=== PATIENT | female | born 1980 | race African-American/Black ===

== ENCOUNTER 2018-02-22 05:48 | Inpatient (IN) | payer OTHER ==
[~2018-02-22] VITALS: Ht 170.2 cm; Wt 114.3 kg
[2018-02-22] MEDS ORDERED: SODIUM CHLORIDE 0.9% 1000ML BAG (SEPSIS BOLUS) IV ONE (07:15)
[2018-02-22] MEDS ORDERED: FENTANYL CITRATE/PF 50MCG/ML 2ML VIAL IV ONE ×2 (07:15→11:00)
[2018-02-22] MEDS ORDERED: ACETAMINOPHEN 500MG TABLET PO ONE (07:15)
[2018-02-22 08:02] LABS: HEMATOCRIT. 25.3 % (36.0-48.0); HEMOGLOBIN. 7.3 g/dL (12.0-16.0); MEAN CORPUSCULAR VOLUME 58.8 fL (81.0-99.0); MEAN PLATELET VOLUME 8.9 fl (7.4-10.4); PLATELET 578 x1000/uL (130-400); RED CELL DISTRIBUTION WIDTH 20.5 % (11.6-14.6)
[2018-02-22 08:03] LABS: CHLORIDE 105 mEq/L (98-107)
[2018-02-22 08:04] LABS: INR 1.2; PROTHROMBIN TIME 11.8 sec (9.1-11.1)
[2018-02-22 08:30] LABS: PLATELET ESTIMATE INCREASED
[2018-02-22] MEDS ORDERED: VANCOMYCIN 1 G PREMIX 200 ML IV SCH (08:45)
[2018-02-22 08:58] LABS: HCG SCREEN NEGATIVE
[2018-02-22 09:42] LABS: CLARITY URINE TURBID (CLEAR); COLOR URINE YELLOW (YELLOW); KETONES URINE NEGATIVE (NEGATIVE); LEUKOCYTE ESTERASE URINE NEGATIVE (NEGATIVE); NITRITE URINE NEGATIVE (NEGATIVE); OCCULT BLOOD URINE 3+ (NEGATIVE); PROTEIN URINE 1+ (NEGATIVE); SPECIFIC GRAVITY URINE 1.025 (1.005-1.030); UROBILINOGEN URINE 0.2 E.U./dL (0.2-1.0)
[2018-02-22] MEDS ORDERED: PIPERACILLIN/TAZOBACTAM 3.375GM/50ML PREMIX IV NR (10:15)
[2018-02-22] MEDS ORDERED: CLONIDINE 0.1MG TABLET PO PRN ×2 (11:30→15:15)
[2018-02-22] MEDS ORDERED: LIDOCAINE HCL 1% 20ML VIAL (Pyxis) INJ ONE (12:16)
[2018-02-22 12:21] LABS: TOTAL IRON BINDING CAPACITY 434 ug/dL (250-450)
[2018-02-22] MEDS ORDERED: MORPHINE SULFATE 4 MG/ML CPJ (NOT FOR IM USE) IV ONE (13:00)
[2018-02-22] MEDS ORDERED: DIPHENHYDRAMINE 25MG CAPSULE PO NR (13:25)
[2018-02-22] MEDS ORDERED: ENOXAPARIN 40MG/0.4ML SYR SUBCUT SCH (15:15)
[2018-02-22] MEDS ORDERED: ONDANSETRON HCL 4MG/2ML INJ IV PRN (15:15)
[2018-02-22] MEDS ORDERED: ACETAMINOPHEN 325MG TABLET PO PRN (15:15)
[2018-02-22] MEDS ORDERED: IPRATROPIUM/ALBUTEROL 0.5-3(2.5)MG/3ML NEB INH PRN (15:15)
[2018-02-22] MEDS ORDERED: IPRATROPIUM/ALBUTEROL 0.5-3(2.5)MG/3ML NEB HHN PRN (15:15)
[2018-02-22 16:04] LABS: CREATINE KINASE 727 IU/L (26-192)
[2018-02-22] MEDS ORDERED: IOHEXOL-350 100 ML BOTTLE ONE (17:31)
[2018-02-22 18:00] VITALS: BP 165/105
[2018-02-22] MEDS: LOSARTAN POTASSIUM 25 MG TABLET PO SCH ×2 (18:37→20:53)
[2018-02-22 18:59] LABS: BG BASE EXCESS -0.1 mmol/L (-2.0-2.0); BG CARBOXYHEMOGLOBIN 1.4 % (0.5-1.5); BG DEOXYHEMOGLOBIN 10.3 % (0.0-5.0); BG FRACTION INSPIRED OXYGEN 32; BG HCO3 ACT 24.5 mmol/L (22.0-26.0); BG METHEMOGLOBIN 0.3 % (0.0-1.5); BG OXYGEN SATURATION 89.5 % (92.0-98.5); BG PCO2 39.5 mmHg (35.0-45.0); BG PO2 59.4 mmHg (75.0-100.0); BG SAMPLE SITE LEFT RADIAL; BG TOTAL HEMOGLOBIN 7.4 g/dL (12.0-18.0); BG VENT MODE NASAL CANNULA
[2018-02-22 20:00] VITALS: BP_SYST 158; BP_SYST 159; BP_DIAS 72; BP_DIAS 78
[2018-02-22] MEDS: CEFTRIAXONE 2 G in DEXTROSE 5% WATER 50 ML IV SCH (20:34)
[2018-02-22] MEDS: AZITHROMYCIN 500 MG TABLET PO SCH (20:52)
[2018-02-22] MEDS: ENOXAPARIN 30MG/0.3ML SYR SUBCUT SCH (20:54)
[2018-02-22] MEDS: VANCOMYCIN 1250MG in DEXTROSE 5% WATER 250ML IV SCH (21:38)
[2018-02-22 22:00] VITALS: BP 153/78
[2018-02-22] MEDS: MORPHINE SULFATE 4 MG/ML CPJ (NOT FOR IM USE) IV PRN (22:00)
[2018-02-22] MEDS: CLINDAMYCIN 600 MG in DEXTROSE 5% WATER 50 ML IV SCH (22:59)
[2018-02-23] VITALS (12 sets, daily range): BP systolic 126–189; BP diastolic 60–118
[2018-02-23] MEDS: CLONIDINE 0.1MG TABLET PO PRN ×2 (01:22→09:30)
[2018-02-23] MEDS: MORPHINE SULFATE 4 MG/ML CPJ (NOT FOR IM USE) IV PRN ×5 (01:50→22:16)
[2018-02-23] MEDS: CLINDAMYCIN 600 MG in DEXTROSE 5% WATER 50 ML IV SCH ×3 (05:43→23:45)
[2018-02-23] MEDS: LOSARTAN POTASSIUM 25 MG TABLET PO SCH (09:28)
[2018-02-23] MEDS: ENOXAPARIN 30MG/0.3ML SYR SUBCUT SCH ×2 (09:29→21:30)
[2018-02-23] MEDS: VANCOMYCIN 1250MG in DEXTROSE 5% WATER 250ML IV SCH ×2 (09:30→22:22)
[2018-02-23] MEDS ORDERED: HYDRALAZINE 20MG/ML VIAL IV PRN (11:45)
[2018-02-23] MEDS ORDERED: AMLODIPINE 2.5MG TABLET PO SCH (11:45)
[2018-02-23 13:07] LABS: BG BASE EXCESS 1.8 mmol/L (-2.0-2.0); BG CARBOXYHEMOGLOBIN 1.3 % (0.5-1.5); BG DEOXYHEMOGLOBIN 2.5 % (0.0-5.0); BG FRACTION INSPIRED OXYGEN 32; BG HCO3 ACT 26.4 mmol/L (22.0-26.0); BG METHEMOGLOBIN 0.3 % (0.0-1.5); BG OXYGEN SATURATION 97.5 % (92.0-98.5); BG OXYHEMOGLOBIN 95.9 % (94.0-97.0); BG PCO2 40.9 mmHg (35.0-45.0); BG PH 7.427 (7.350-7.450); BG SAMPLE SITE LEFT RADIAL; BG TOTAL HEMOGLOBIN 7.2 g/dL (12.0-18.0); BG VENT MODE NASAL CANNULA
[2018-02-23] MEDS: IRON SUCROSE COMPLEX 100 MG/5 ML ML IV SCH (13:43)
[2018-02-23] MEDS: SODIUM CHLORIDE 0.45% 1,000 ML IV SCH (13:59)
[2018-02-23 18:15] LABS: HEMATOCRIT 22.8 % (36.0-48.0); MEAN CORPUSCULAR VOLUME 59.6 fL (81.0-99.0); PLATELET 491 x1000/uL (130-400); RED BLOOD CELL COUNT 3.82 mill/uL (4.2-5.4); RED CELL DISTRIBUTION WIDTH 21.1 % (11.6-14.6)
[2018-02-23 18:34] LABS: HEMOGLOBIN 6.5 g/dL (12.0-16.0)
[2018-02-23 18:53] LABS: CHLORIDE 105 mEq/L (98-107)
[2018-02-23 19:05] LABS: LDL CHOLESTEROL 69 mg/dL (5-100)
[2018-02-23 19:07] LABS: CREATINE KINASE 354 IU/L (26-192); CREATINE KINASE MB FRACTION 1.1 ng/mL (0.5-3.6); HDL CHOLESTEROL 48 mg/dL (40-59); T4 FREE 0.84 ng/dL (0.76-1.46)
[2018-02-23] MEDS ORDERED: POTASSIUM CHLORIDE 20MEQ TABLET SR PO NR (20:00)
[2018-02-23] MEDS: AZITHROMYCIN 500 MG TABLET PO SCH (20:00)
[2018-02-23] MEDS: CEFTRIAXONE 2 G in DEXTROSE 5% WATER 50 ML IV SCH (21:04)
[2018-02-23] MEDS: LOSARTAN POTASSIUM 50 MG TABLET PO SCH (21:27)
[2018-02-23] MEDS: AMLODIPINE 5MG TABLET PO SCH (21:28)
[2018-02-24] VITALS (8 sets, daily range): BP systolic 141–171; BP diastolic 78–108
[2018-02-24] MEDS: SODIUM CHLORIDE 0.45% 1,000 ML IV SCH ×2 (01:14→13:02)
[2018-02-24] MEDS: MORPHINE SULFATE 4 MG/ML CPJ (NOT FOR IM USE) IV PRN ×2 (01:50→05:48)
[2018-02-24] MEDS: CLINDAMYCIN 600 MG in DEXTROSE 5% WATER 50 ML IV SCH ×3 (05:59→22:00)
[2018-02-24] MEDS: ENOXAPARIN 30MG/0.3ML SYR SUBCUT SCH (09:00)
[2018-02-24] MEDS: AMLODIPINE 5MG TABLET PO SCH ×2 (09:27→20:45)
[2018-02-24] MEDS: VANCOMYCIN 1250MG in DEXTROSE 5% WATER 250ML IV SCH ×2 (09:27→21:12)
[2018-02-24] MEDS: LOSARTAN POTASSIUM 50 MG TABLET PO SCH ×2 (09:27→20:44)
[2018-02-24 10:39] LABS: BASOPHILS % 0.8 % (0.0-2.0); EOSINOPHILS % 1.2 % (0.0-5.0); HEMATOCRIT. 24.7 % (36.0-48.0); LYMPHOCYTES % 14.2 % (20.0-50.0); MEAN CORPUSCULAR VOLUME 60.1 fL (81.0-99.0); MEAN PLATELET VOLUME 8.6 fl (7.4-10.4); MONOCYTES % 7.9 % (2.0-8.0); NEUTROPHILS % 75.9 % (40.0-76.0); PLATELET 504 x1000/uL (130-400); RED CELL DISTRIBUTION WIDTH 20.8 % (11.6-14.6)
[2018-02-24 11:27] LABS: BG BASE EXCESS 2.5 mmol/L (-2.0-2.0); BG CARBOXYHEMOGLOBIN 1.6 % (0.5-1.5); BG DEOXYHEMOGLOBIN 3.1 % (0.0-5.0); BG FRACTION INSPIRED OXYGEN 28; BG HCO3 ACT 27.7 mmol/L (22.0-26.0); BG METHEMOGLOBIN 0.3 % (0.0-1.5); BG OXYGEN SATURATION 96.8 % (92.0-98.5); BG PCO2 46.3 mmHg (35.0-45.0); BG PH 7.394 (7.350-7.450); BG PO2 90.2 mmHg (75.0-100.0); BG SAMPLE SITE LEFT RADIAL; BG TOTAL HEMOGLOBIN 7.5 g/dL (12.0-18.0); BG VENT MODE NASAL CANNULA
[2018-02-24 11:52] LABS: CHLORIDE 107 mEq/L (98-107)
[2018-02-24 12:03] LABS: CREATINE KINASE 206 IU/L (26-192)
[2018-02-24 12:04] LABS: CREATINE KINASE MB FRACTION < 1.0 ng/mL (0.5-3.6)
[2018-02-24] MEDS: IRON SUCROSE COMPLEX 100 MG/5 ML ML IV SCH (13:02)
[2018-02-24] MEDS: HYDROCODONE/APAP 7.5/325MG 1 TAB TABLET PO PRN ×2 (13:04→18:31)
[2018-02-24] MEDS: CLONIDINE 0.1MG TABLET PO PRN (18:27)
[2018-02-24] MEDS ORDERED: MORPHINE SULFATE 10MG/5ML ORAL SOLN UDC PO PRN (18:30)
[2018-02-24] MEDS: CEFTRIAXONE 2 G in DEXTROSE 5% WATER 50 ML IV SCH (20:44)
[2018-02-24] MEDS: AZITHROMYCIN 500 MG TABLET PO SCH (20:44)
[2018-02-25] VITALS (8 sets, daily range): BP systolic 139–163; BP diastolic 65–101
[2018-02-25] MEDS: HYDROCODONE/APAP 7.5/325MG 1 TAB TABLET PO PRN ×3 (01:43→20:41)
[2018-02-25] MEDS: CLINDAMYCIN 600 MG in DEXTROSE 5% WATER 50 ML IV SCH ×3 (05:01→21:30)
[2018-02-25 05:37] LABS: HEMATOCRIT 22.8 % (36.0-48.0); MEAN CORPUSCULAR HEMOGLOBIN 17.2 pg (28.0-32.0); MEAN CORPUSCULAR VOLUME 59.9 fL (81.0-99.0); PLATELET 470 x1000/uL (130-400); RED CELL DISTRIBUTION WIDTH 21.2 % (11.6-14.6)
[2018-02-25 05:39] LABS: CHLORIDE 106 mEq/L (98-107)
[2018-02-25 06:38] LABS: HEMOGLOBIN 6.5 g/dL (12.0-16.0)
[2018-02-25] MEDS: LOSARTAN POTASSIUM 50 MG TABLET PO SCH ×2 (08:50→20:28)
[2018-02-25] MEDS: AMLODIPINE 5MG TABLET PO SCH ×2 (08:50→20:28)
[2018-02-25] MEDS: IRON SUCROSE COMPLEX 100 MG/5 ML ML IV SCH (13:11)
[2018-02-25 14:37] LABS: BG BASE EXCESS -1.6 mmol/L (-2.0-2.0); BG CARBOXYHEMOGLOBIN 1.1 % (0.5-1.5); BG DEOXYHEMOGLOBIN 6.8 % (0.0-5.0); BG FRACTION INSPIRED OXYGEN 21; BG HCO3 ACT 21.9 mmol/L (22.0-26.0); BG METHEMOGLOBIN 0.4 % (0.0-1.5); BG OXYGEN SATURATION 93.1 % (92.0-98.5); BG OXYHEMOGLOBIN 91.7 % (94.0-97.0); BG PH 7.454 (7.350-7.450); BG PO2 68.3 mmHg (75.0-100.0); BG SAMPLE SITE RIGHT RADIAL; BG TOTAL HEMOGLOBIN 8.3 g/dL (12.0-18.0); BG VENT MODE ROOM AIR
[2018-02-25] MEDS ORDERED: LIDOCAINE HCL/PF 1% 2ML VIAL ONE (14:44)
[2018-02-25] MEDS: CLONIDINE 0.1MG TABLET PO PRN (17:25)
[2018-02-25] MEDS ORDERED: MORPHINE SULFATE 10MG/5ML ORAL SOLN UDC PO PRN (18:30)
[2018-02-25] MEDS: CEFTRIAXONE 2 G in DEXTROSE 5% WATER 50 ML IV SCH (20:27)
[2018-02-26] MEDS: CLINDAMYCIN 600 MG in DEXTROSE 5% WATER 50 ML IV SCH ×2 (05:48→14:48)
[2018-02-26 07:11] LABS: MEAN CORPUSCULAR HEMOGLOBIN 17.3 pg (28.0-32.0); MEAN CORPUSCULAR VOLUME 60.6 fL (81.0-99.0); MEAN PLATELET VOLUME 8.9 fl (7.4-10.4); PLATELET 478 x1000/uL (130-400); RED CELL DISTRIBUTION WIDTH 21.1 % (11.6-14.6)
[2018-02-26 07:43] LABS: CHLORIDE 103 mEq/L (98-107)
[2018-02-26 08:00] VITALS: BP 155/90
[2018-02-26 08:18] LABS: HEMOGLOBIN. 6.9 g/dL (12.0-16.0)
[2018-02-26 08:19] LABS: HEMATOCRIT. 24.3 % (36.0-48.0)
[2018-02-26] MEDS: AMLODIPINE 5MG TABLET PO SCH (08:46)
[2018-02-26] MEDS: LOSARTAN POTASSIUM 50 MG TABLET PO SCH (08:46)
[2018-02-26] MEDS: HYDROCODONE/APAP 7.5/325MG 1 TAB TABLET PO PRN (09:16)
[2018-02-26 09:43] LABS: NUCLEATED RED BLOOD CELLS 3 /100 WBC
[2018-02-26 09:44] LABS: PLATELET ESTIMATE INCREASED
[2018-02-26] MEDS ORDERED: POTASSIUM CHLORIDE 20MEQ TABLET SR PO NR (10:45)
[2018-02-26 12:00] VITALS: BP 146/81
[2018-02-26 16:00] VITALS: BP 154/84
[2018-02-26] MEDS ORDERED: losartan (17:03)
[2018-02-26] MEDS ORDERED: AMLO5TAB88 MT (17:04)
[2018-02-26] MEDS ORDERED: HYDR-4001 MT (17:04)
[2018-02-26 17:32] VITALS: BP 154/84
[2018-02-26] MEDS ORDERED: FERROUS SULFATE 325MG TABLET PO SCH (18:00)
[2018-02-26] MEDS ORDERED: AMLODIPINE 10MG TABLET PO SCH (21:00)
[2018-02-27 08:14] LABS: HIV SCREEN 4G Non Reactive (Non Reactive)
[2018-03-02 04:12] LABS: MYCOPLASMA PNEUMONIAE IGG 149 U/mL (0-99); MYCOPLASMA PNEUMONIAE IGM < 770 U/mL (0-769)
== END 2018-02-26 19:27 | disposition home or self-care (01) | DRG 720 ==
LOC: ER 05:48 → EDBEDREQTM 11:07 → EDBEDREQ 11:07 → ENRESERV 14:31 → 5EST 18:10
PROVIDERS: ADMIT Internal Medicine; ATTEND Internal Medicine
PROC: 05HY33Z Insertion of Infusion Device into Upper Vein, Percutaneous Approach (ICD-10-PCS; principal; 2018-02-22)
PROC: B54NZZA Ultrasonography of Left Upper Extremity Veins, Guidance (ICD-10-PCS; 2018-02-22)
DX: A41.9 Sepsis, unspecified organism (principal); I21.4 Non-ST elevation (NSTEMI) myocardial infarction; J96.00 Acute respiratory failure, unspecified whether with hypoxia or hypercapnia; J18.1 Lobar pneumonia, unspecified organism; R65.20 Severe sepsis without septic shock; D25.9 Leiomyoma of uterus, unspecified; E87.2 Acidosis; E87.6 Hypokalemia; D50.9 Iron deficiency anemia, unspecified; L03.113 Cellulitis of right upper limb; M60.9 Myositis, unspecified; I10 Essential (primary) hypertension; R31.9 Hematuria, unspecified; R09.02 Hypoxemia; M19.90 Unspecified osteoarthritis, unspecified site; R74.0 Nonspecific elevation of levels of transaminase and lactic acid dehydrogenase [LDH]; R73.9 Hyperglycemia, unspecified; D47.3 Essential (hemorrhagic) thrombocythemia; E66.01 Morbid (severe) obesity due to excess calories; Z53.1 Procedure and treatment not carried out because of patient's decision for reasons of belief and group pressure; Z82.49 Family history of ischemic heart disease and other diseases of the circulatory system; Z68.39 Body mass index [BMI] 39.0-39.9, adult; Z98.891 History of uterine scar from previous surgery
CPT/HCPCS: 36415; 36569; 36600; 71045; 71275; 73030; 73080; 73110; 73200; 76830; 76856; 76937; 80048; 80061; 80202; 82375; 82550; 82553; 82805; 83540; 83550; 83605; 83735; 83880; 84145; 84439; 84443; 84484; 84550; 84703; 85027; 85044; 85379; 86738; 87070; 87106; 87186; 87389; 87804; 93005; 93306; 93970; 93971; 96365; 97110; 97116; 97162; 99291; A4565; C1725; J0696; J1650; J2270; J2543; J3010; J3370; J3490; J7030; J7040; J7050; J7060; Q0163; Q9967